=== PATIENT | male | born 1940 | race Caucasian/White ===

== ENCOUNTER 2017-02-13 15:23 | Inpatient (IN) | payer MEDICARE, OTHER ==
--- NOTE | ~2017-02-13 | HP ---
History And Physical [place] [id number] [place] [address] NAME: ZENY ORTEGA JR : 44 STATUS : ADM IN [facility]#: [id number] AGE: 76 ADM/REG DATE : 02/13/17 MR#: [id number] REPORT SERV DATE: 02/13/17 DICTATED BY: WERO MARTINEZ DATE: 02/13/17 REPORT STATUS : Draft TRANSCRIBED BY: DENTON DATE: 02/13/17 DATE OF ADMISSION: 02/13/2017 CHIEF COMPLAINT: Confusion and worsening weakness and poor p.o. intake. HISTORY OF PRESENT ILLNESS: Mr. Ortega is a 76-year-old male with known metastatic melanoma. The patient recently got started on Keytruda on February 02, given progression of his disease on p.o. medications. Per his , he started getting more confused a few days after the Keytruda treatments with worsening poor p.o. intake. Of note, he did have poor p.o. intake prior to the treatment but she notes this was worse. He has received 3 doses of Marinol for this although the confusion did precede the Marinol. He has not had a fall recently but he did have a bad fall about two months ago. He is currently living at home with his family after his rehab stay last fall. He has had worsening weakness. He did have a fever of 101 about three days ago and then again this morning and a little bit of a cough. Mr. Ortega denies any diarrhea, dysuria, complaints of shortness of breath or chest pain. Mr. Ortega currently is confused. He knows he is at the hospital but otherwise unable to answer questions. REVIEW OF SYSTEMS: Mr. Ortega denies any current complaints although he is confused. Again as mentioned above, Mr. Ortega denies any nausea, vomiting, diarrhea, dysuria, chest pain, or shortness of breath. He has had a dry cough. PAST MEDICAL HISTORY: 1. The patient has metastatic melanoma with known metastasis to bone and liver. He has history of diabetes, history of upper GI bleed in July 2016 with acute blood loss anemia and hemorrhagic shock. 2. History of severe malnutrition, chronic pain, and hyperlipidemia. 3. He also has a history of prostate cancer and kidney stones. 4. He had a pathologic fracture of L2 status post surgery by Dr. Hunt in May 2016. ALLERGIES: NO KNOWN DRUG ALLERGIES. HOME MEDICATIONS: List is pending at this time. does confirm that he is taking Marinol, he has taken about 3 doses of this. He also got his Keytruda dose on February 02. Per the ER note from [facility], he is on metformin as well as MSIR for pain and Protonix. SOCIAL HISTORY: Lives at home with his . Denies any illicits or drugs. FAMILY HISTORY: Does have siblings with Parkinson's and diabetes. LABORATORY DATA: From the ER, CBC with white blood cell count 16.2, hemoglobin 11, and platelet count of 443. BMP notable for serum sodium 131, potassium 3.9, chloride 93, CO2 of 26, BUN 29, creatinine 1.1 with calcium of 10.4, and albumin of 1.9. IMAGING: It does not appear there was imaging done in the emergency room. History And Physical [address] [address] NAME: ZENY ORTEGA JR : 44 STATUS : ADM IN [facility]#: [id number] AGE: 76 ADM/REG DATE : 02/13/17 MR#: [id number] REPORT SERV DATE: 02/13/17 DICTATED BY: WERO MARTINEZ DATE: 02/13/17 REPORT STATUS : Draft TRANSCRIBED BY: DENTON DATE: 02/13/17 ASSESSMENT AND PLAN: This is a 76-year-old male with known metastatic melanoma in progression, recently started on Keytruda on February 02. Presenting with weakness, fever, confusion, leukocytosis, hypercalcemia, and recent abnormal TFTs. 1. Acute metabolic encephalopathy. Presumably, this may be multifactorial due to medications, poor p.o. intake, possibly related to Keytruda infusion and fever. Likely multifactorial. At this time, we will check an MRI because the last MRI was in July and the patient may be at risk for new intracranial metastasis. In the interim, we will avoid sedating medications and monitor his mental status closely. We will do infectious workup as well. 2. Fever with encephalopathy. This is concerning for possible underlying sepsis. He does have a leukocytosis with a neutrophil predominance. We will check urine cultures as well as chest x-ray and blood cultures. We will start him on empiric cefepime and monitor this. 3. Hypercalcemia. The patient's corrected calcium is 12.2, given an albumin of 1.1. We will treat him with a dose of pamidronate and IV fluids. This was discussed with Dr. Gay from Oncology. 4. Known metastatic melanoma. Oncology has been consulted. Dr. Gay has seen and agrees with the above plan we have discussed. 5. Weakness. Suspect this may be multifactorial given all of the above including a possible infection, hypercalcemia, recent chemo and progression of his underlying metastatic melanoma. We will have PT see him and follow along. He will be on fall precautions. 6. Recent TSH of 56. We will repeat TFTs. May need to consider starting him on levothyroxine. 7. Diabetes. We will hold any p.o. medications and monitor with Accu-Cheks and sliding scale insulin. 8. Mild acute renal failure, likely due to dehydration. We will give him IV fluids and follow. 9. GI bleed in July of last year. We will continue the patient's PPI. 10.Chronic pain. Continue outpatient medications as long as mental status tolerates. 11.DVT prophylaxis will be with Lovenox. 12.Code status. I have discussed this with the patient's as well as Dr. Gay. At this time, the patient's wishes to discuss with her son and daughter. We will recommend DNR although this conversation has yet to be had with the patient, so the patient will be a full code in the interim. PAM/DENTON Wero Martinez MD / [id number] CC: History And Physical [address] [place] [address] NAME: ZENY ORTEGA : 44 STATUS : ADM IN [facility]#: [id number] AGE: 76 ADM/REG DATE : 02/13/17 MR#: [id number] REPORT SERV DATE: 02/13/17 DICTATED BY: WERO MARTINEZ DATE: 02/13/17 REPORT STATUS : Draft TRANSCRIBED BY: MODL DATE: 02/13/17 Wero Martinez MD
--- NOTE | ~2017-02-13 | DS ---
Discharge Summary [facility] [address] [place]. [address] NAME: ZENY BANKS JR : 44 STATUS : DIS IN PAT#: [id number] AGE: 76 ADM/REG DATE : 02/13/17 MR#: [id number] REPORT SERV DATE: 02/23/17 DICTATED BY: RYAN DISLA II DATE: 02/22/17 REPORT STATUS : Draft TRANSCRIBED BY: MODL DATE: 02/22/17 ADMISSION DATE: 02/13/2017 DISCHARGE DATE: 02/22/2017 DISCHARGE DIAGNOSES: 1. Sepsis. 2. Bilateral pleural effusions, exudative likely malignant. 3. Atelectasis. 4. Dysphagia with severe protein-calorie malnutrition. 5. Metastatic melanoma with progression. 6. Metabolic encephalopathy and agitation. 7. Extended-spectrum beta-lactamase urinary tract infection. 8. Hypernatremia. 9. Hypokalemia. CONSULTS: Kaleb Delaney M.D., and Pete Tang M.D., with [facility]. BRIEF HISTORY OF PRESENT ILLNESS: The patient is a 76-year-old male with the above history who presented to [facility] due to confusion, weakness, and poor p.o. intake. For detailed history and physical examination, please see Dr. Martinez's note from 02/13/2017. HOSPITAL COURSE: On admission, the patient had a white count of 16.6 with urinalysis with 12 white blood cells and small leukocyte esterase. He was started on IV cefepime given that he was fairly tachycardic and met criteria for sepsis. The patient continued to have elevated white count despite treatment with broad-spectrum antibiotics. Urine culture initially grew ESBL E. coli. Subsequent urinalyses and urine cultures were negative. The patient's white count continued to trend up despite antibiotics though he has been afebrile. There is no clear evidence of infection and a CT scan of his chest was done which showed large right and moderate left loculated pleural effusions with prominent compressive atelectasis consolidation throughout the lower lobes bilaterally. Otherwise scattered bilateral pulmonary nodules compatible with pulmonary metastatic disease, new since 04/10/2016. Also findings compatible with bony metastatic disease with multiple lytic lesions scattered throughout the thoracic and visualized lumbar spine with what appears to be pathologic fracture involving T8 vertebral body with approximately 90% loss of height. Otherwise, scattered soft tissue nodules in the left upper abdominal fat likely metastatic implants. Diffuse heterogeneity of the visualized liver likely related to hepatic metastatic disease. The patient had a thoracentesis which was exudative. Currently path pending but likely malignant. Given the patient's poor physical status, dysphagia, malnutrition, he will not be a candidate for further chemotherapy and Dr. Tang has recommended Hospice. Currently, the family is planning to take him home and this will be arranged. DISCHARGE MEDICATION: Marinol 2.5 mg p.o. q.6 hours. JEG/DENTON Discharge Summary [facility] [address] [facility] [place]. [address] NAME: ZENY BANKS : 44 STATUS : DIS IN PAT#: [id number] AGE: 76 ADM/REG DATE : 02/13/17 MR#: [id number] REPORT SERV DATE: 02/23/17 DICTATED BY: RYAN DISLA II DATE: 02/22/17 REPORT STATUS : Draft TRANSCRIBED BY: DENTON DATE: 02/22/17 Ryan Disla II, MD / [id number] CC: MD Meaghan Starks II, M.D.
[~2017-02-13 15:23] MED LIST: APPLE CIDAR VINEGAR; ASAB; ASAB PO; CO Q-10200 MG PO; DEX4 PO; FISH-EPA1000 MG PO; FLOMAX4 PO; GLUCOPHAGE1000 MG PO; GLUCPH PO; HALF81 PO; MEKINIST PO; METHOC500B PO; MIRALAXPKT PO; MSCONT15 PO; MSCONTIN PO; MUSCLE RELAXER PO; NEUR600 PO; NORCO1 TA1 PO; ONGLYZA5 MG PO; OXYCOD PO; PCET PO; PROTONIX PO; SENTAB PO; TAFIN75C PO; VITAMIN D1000 UNI1 PO; ZOCOR20 PO; ZOCOR40 PO; ZOFRAN ODT4 MG PO; [UNRECOGNIZED DRUG - OTHER] PO
[2017-02-13] MEDS ORDERED: FERROUS SULF325 M1 PO (18:00)
[2017-02-13] MEDS ORDERED: VITC500 PO (18:00)
[2017-02-13] MEDS ORDERED: PROTONIX PO (18:01)
[2017-02-13] MEDS ORDERED: GLUCPH PO (18:01)
[2017-02-13] MEDS ORDERED: MARI2.5 PO (18:03)
[2017-02-13] MEDS ORDERED: KEYTRUDA IV (18:03)
[2017-02-13] MEDS ORDERED: LIPITOR20 PO (18:03)
[2017-02-13 18:06] LABS: ASCORBIC ACID (UR NOT ORDER) 40 (NEG); BILIRUBIN, URINE NEGATIVE (NEG); KETONE, URINE 20 MG/DL (NEG); LEUKOCYTE ESTERASE(NOT OR SMALL (NEG); WBC (NOT ORDERED) (RFLEX) 12 (0-5)
[2017-02-13 18:37] LABS: FREE T4 0.48 NG/DL (0.76-1.46); PHOSPHORUS, SERUM 2.3 MG/DL (2.5-4.5)
[2017-02-13 18:39] LABS: ULTRASENSITIVE TSH 20.6 MCIU/ML (0.358-3.740)
[2017-02-13 19:24] LABS: PROCALCITONIN 1.46 ng/mL (<0.5)
[2017-02-13 19:34] LABS: CREATININE 0.86 MG/DL (0.70-1.30)
[2017-02-14 07:23] LABS: BASOPHILS 0.1 %; BASOPHILS ABSOLUTE 0.02 10/3/uL (0.0-0.16); EOSINOPHILS 0 %; IMMATURE GRANULOCYTES 0.4 %; IMMATURE GRANULOCYTES ABSOLUTE 0.07 10/3/uL (0.0-0.11); LYMPHOCYTES 7.9 %; LYMPHOCYTES ABSOLUTE 1.31 10/3/uL (0.67-4.30); MEAN CORPUS HGB CONC 33.3 g/dL (32.0-36.0); MEAN CORPUSCULAR HEMOGLOB 28.9 pg (26.0-34.0); MEAN CORPUSCULAR VOLUME 86.6 fL (80-100); MONOCYTES ABSOLUTE 0.33 10/3/uL (0.21-1.20); NEUTROPHILS 89.6 %; NEUTROPHILS ABSOLUTE 14.87 10/3/uL (2.02-8.40); PLATELET COUNT 371 10/3/uL (150-400); RBC DISTRIBUTION WIDTH 15.3 % (12.0-16.0)
[2017-02-14 07:24] LABS: HEMATOCRIT 29.7 % (40.0-51.0); HEMOGLOBIN 9.9 g/dL (13.6-17.8); MANUAL DIFF NO %; RED CELL COUNT 3.43 10/6/uL (4.7-6.1); WHITE BLOOD CELLS 16.6 10/3/uL (4.5-10.5)
[2017-02-14 07:43] LABS: ALBUMIN 1.6 G/DL (3.5-5.0); CHLORIDE, SERUM 101 MMOL/L (96-112); CREATININE 0.73 MG/DL (0.70-1.30); GFR AFRICAN AMERICAN 106 ML/MIN (>=60); GFR NON AFRICAN AMERICAN 91 ML/MIN (>=60); POTASSIUM, SERUM 3.3 MMOL/L (3.5-5.3); SGOT(AST) 7 U/L (5-40); TOTAL BILIRUBIN 0.7 MG/DL (0-1.2); TOTAL PROTEIN 5.6 G/DL (6.0-8.5)
[2017-02-14 07:44] LABS: A/G RATIO 0.4 (0.7-1.9); ALKALINE PHOSPHATASE 68 U/L (45-117); BUN (BLOOD UREA NITROGEN) 23 MG/DL (6-23); CALCIUM, SERUM 9.7 MG/DL (8.5-10.4); CO2 (CARBON DIOXIDE) 23 MMOL/L (24-34); GLUCOSE, SERUM 385 MG/DL (60-99); SGPT(ALT) < 6 U/L (5-65); SODIUM, SERUM 135 MMOL/L (135-148)
[2017-02-15 06:57] LABS: BASOPHILS 0.1 %; BASOPHILS ABSOLUTE 0.01 10/3/uL (0.0-0.16); EOSINOPHILS 0.1 %; EOSINOPHILS ABSOLUTE 0.01 10/3/uL (0.0-0.53); HEMATOCRIT 28.3 % (40.0-51.0); HEMOGLOBIN 9.7 g/dL (13.6-17.8); IMMATURE GRANULOCYTES 0.5 %; LYMPHOCYTES 2.9 %; LYMPHOCYTES ABSOLUTE 0.54 10/3/uL (0.67-4.30); MEAN CORPUS HGB CONC 34.3 g/dL (32.0-36.0); MEAN CORPUSCULAR HEMOGLOB 29.2 pg (26.0-34.0); MEAN CORPUSCULAR VOLUME 85.2 fL (80-100); MONOCYTES 7.7 %; MONOCYTES ABSOLUTE 1.44 10/3/uL (0.21-1.20); NEUTROPHILS 88.7 %; NEUTROPHILS ABSOLUTE 16.68 10/3/uL (2.02-8.40); PLATELET COUNT 432 10/3/uL (150-400); RBC DISTRIBUTION WIDTH 15.1 % (12.0-16.0); RED CELL COUNT 3.32 10/6/uL (4.7-6.1); WHITE BLOOD CELLS 18.8 10/3/uL (4.5-10.5)
[2017-02-15 06:58] LABS: MANUAL DIFF NO %
[2017-02-15 07:08] LABS: BUN (BLOOD UREA NITROGEN) 17 MG/DL (6-23); CALCIUM, SERUM 9.7 MG/DL (8.5-10.4); CHLORIDE, SERUM 106 MMOL/L (96-112); CO2 (CARBON DIOXIDE) 26 MMOL/L (24-34); CREATININE 0.64 MG/DL (0.70-1.30); GFR AFRICAN AMERICAN 112 ML/MIN (>=60); GFR NON AFRICAN AMERICAN 96 ML/MIN (>=60); GLUCOSE, SERUM 174 MG/DL (60-99); POTASSIUM, SERUM 3.4 MMOL/L (3.5-5.3); SODIUM, SERUM 142 MMOL/L (135-148)
[2017-02-16 05:13] LABS: BUN (BLOOD UREA NITROGEN) 19 MG/DL (6-23); CALCIUM, SERUM 9.3 MG/DL (8.5-10.4); CHLORIDE, SERUM 107 MMOL/L (96-112); CO2 (CARBON DIOXIDE) 27 MMOL/L (24-34); GFR AFRICAN AMERICAN 102 ML/MIN (>=60); GFR NON AFRICAN AMERICAN 88 ML/MIN (>=60); GLUCOSE, SERUM 186 MG/DL (60-99); POTASSIUM, SERUM 3.1 MMOL/L (3.5-5.3); SODIUM, SERUM 145 MMOL/L (135-148)
[2017-02-16 05:19] LABS: BASOPHILS 0.1 %; BASOPHILS ABSOLUTE 0.01 10/3/uL (0.0-0.16); EOSINOPHILS 0.1 %; EOSINOPHILS ABSOLUTE 0.01 10/3/uL (0.0-0.53); HEMATOCRIT 27.6 % (40.0-51.0); HEMOGLOBIN 9.4 g/dL (13.6-17.8); IMMATURE GRANULOCYTES 0.4 %; IMMATURE GRANULOCYTES ABSOLUTE 0.07 10/3/uL (0.0-0.11); LYMPHOCYTES 4.4 %; LYMPHOCYTES ABSOLUTE 0.84 10/3/uL (0.67-4.30); MEAN CORPUS HGB CONC 34.1 g/dL (32.0-36.0); MEAN CORPUSCULAR HEMOGLOB 28.9 pg (26.0-34.0); MEAN CORPUSCULAR VOLUME 84.9 fL (80-100); MEAN PLATELET VOLUME 10.4 fL (9.2-13.0); MONOCYTES 8.2 %; MONOCYTES ABSOLUTE 1.55 10/3/uL (0.21-1.20); NEUTROPHILS 86.8 %; NEUTROPHILS ABSOLUTE 16.41 10/3/uL (2.02-8.40); PLATELET COUNT 434 10/3/uL (150-400); RBC DISTRIBUTION WIDTH 15.6 % (12.0-16.0); RED CELL COUNT 3.25 10/6/uL (4.7-6.1); WHITE BLOOD CELLS 18.9 10/3/uL (4.5-10.5)
[2017-02-16 05:21] LABS: MANUAL DIFF NO %
[2017-02-16 10:58] LABS: PROCALCITONIN 1.45 ng/mL (<0.5)
[2017-02-17 05:20] LABS: HEMATOCRIT 26.8 % (40.0-51.0); MEAN CORPUS HGB CONC 33.6 g/dL (32.0-36.0); MEAN CORPUSCULAR HEMOGLOB 28.9 pg (26.0-34.0); MEAN CORPUSCULAR VOLUME 86.2 fL (80-100); MEAN PLATELET VOLUME 10.8 fL (9.2-13.0); PLATELET COUNT 403 10/3/uL (150-400); RBC DISTRIBUTION WIDTH 15.7 % (12.0-16.0); RED CELL COUNT 3.11 10/6/uL (4.7-6.1); WHITE BLOOD CELLS 20.2 10/3/uL (4.5-10.5)
[2017-02-17 05:24] LABS: MANUAL DIFF YES %
[2017-02-17 05:31] LABS: BUN (BLOOD UREA NITROGEN) 20 MG/DL (6-23); CALCIUM, SERUM 8.5 MG/DL (8.5-10.4); CHLORIDE, SERUM 113 MMOL/L (96-112); CO2 (CARBON DIOXIDE) 25 MMOL/L (24-34); CREATININE 0.82 MG/DL (0.70-1.30); GFR AFRICAN AMERICAN 101 ML/MIN (>=60); GFR NON AFRICAN AMERICAN 87 ML/MIN (>=60); GLUCOSE, SERUM 216 MG/DL (60-99); POTASSIUM, SERUM 3.3 MMOL/L (3.5-5.3); SODIUM, SERUM 147 MMOL/L (135-148)
[2017-02-17 06:02] LABS: BAND NEUTROPHILS 8 %; LYMPHOCYTES 14 %; LYMPHOCYTES ABSOLUTE (CALC) 2.83 10/3/uL (0.67-4.30); MONOCYTES 2 %; NEUTROPHILS ABSOLUTE (CALC) 16.97 10/3/uL (2.02-8.40); SEGMENTED NEUTROPHIL (0) 76 %; TOTAL NUCLEATED CELLS 100
[2017-02-17 06:03] LABS: GIANT PLATELET OCC; PLATELET ESTIMATE SLT INC (ADEQUATE)
[2017-02-17 10:40] LABS: ASCORBIC ACID (UR NOT ORDER) 40 (NEG); BILIRUBIN, URINE NEGATIVE (NEG); KETONE, URINE NEGATIVE (NEG); LEUKOCYTE ESTERASE(NOT OR TRACE (NEG); WBC (NOT ORDERED) (RFLEX) 22 (0-5)
[2017-02-18 05:27] LABS: BUN (BLOOD UREA NITROGEN) 19 MG/DL (6-23); CHLORIDE, SERUM 114 MMOL/L (96-112); CO2 (CARBON DIOXIDE) 25 MMOL/L (24-34); CREATININE 0.87 MG/DL (0.70-1.30); GFR AFRICAN AMERICAN 99 ML/MIN (>=60); GFR NON AFRICAN AMERICAN 85 ML/MIN (>=60); GLUCOSE, SERUM 223 MG/DL (60-99); POTASSIUM, SERUM 3.2 MMOL/L (3.5-5.3); SODIUM, SERUM 150 MMOL/L (135-148)
[2017-02-18 05:30] LABS: BASOPHILS 0.1 %; BASOPHILS ABSOLUTE 0.02 10/3/uL (0.0-0.16); EOSINOPHILS 0.1 %; EOSINOPHILS ABSOLUTE 0.02 10/3/uL (0.0-0.53); IMMATURE GRANULOCYTES 0.5 %; IMMATURE GRANULOCYTES ABSOLUTE 0.09 10/3/uL (0.0-0.11); LYMPHOCYTES 4.1 %; LYMPHOCYTES ABSOLUTE 0.76 10/3/uL (0.67-4.30); MEAN CORPUS HGB CONC 33.3 g/dL (32.0-36.0); MEAN CORPUSCULAR HEMOGLOB 28.7 pg (26.0-34.0); MEAN PLATELET VOLUME 11.2 fL (9.2-13.0); MONOCYTES 7.4 %; MONOCYTES ABSOLUTE 1.39 10/3/uL (0.21-1.20); NEUTROPHILS 87.8 %; NEUTROPHILS ABSOLUTE 16.47 10/3/uL (2.02-8.40); PLATELET COUNT 352 10/3/uL (150-400); RED CELL COUNT 3.14 10/6/uL (4.7-6.1); WHITE BLOOD CELLS 18.8 10/3/uL (4.5-10.5)
[2017-02-18 05:32] LABS: MANUAL DIFF NO %
[2017-02-19 07:28] LABS: HEMATOCRIT 28.7 % (40.0-51.0); HEMOGLOBIN 9.6 g/dL (13.6-17.8); MEAN CORPUS HGB CONC 33.4 g/dL (32.0-36.0); MEAN CORPUSCULAR HEMOGLOB 28.2 pg (26.0-34.0); MEAN CORPUSCULAR VOLUME 84.4 fL (80-100); MEAN PLATELET VOLUME 11.5 fL (9.2-13.0); PLATELET COUNT 353 10/3/uL (150-400); RBC DISTRIBUTION WIDTH 16.1 % (12.0-16.0); WHITE BLOOD CELLS 24.1 10/3/uL (4.5-10.5)
[2017-02-19 07:29] LABS: CALCIUM, SERUM 7.8 MG/DL (8.5-10.4); CHLORIDE, SERUM 117 MMOL/L (96-112); CO2 (CARBON DIOXIDE) 28 MMOL/L (24-34); CREATININE 0.86 MG/DL (0.70-1.30); GFR AFRICAN AMERICAN 99 ML/MIN (>=60); GFR NON AFRICAN AMERICAN 85 ML/MIN (>=60); POTASSIUM, SERUM 3.4 MMOL/L (3.5-5.3); SODIUM, SERUM 154 MMOL/L (135-148)
[2017-02-19 07:30] LABS: BUN (BLOOD UREA NITROGEN) 23 MG/DL (6-23); GLUCOSE, SERUM 132 MG/DL (60-99)
[2017-02-19 07:31] LABS: MANUAL DIFF YES %
[2017-02-19 07:40] LABS: BAND NEUTROPHILS 15 %; LYMPHOCYTES 7 %; LYMPHOCYTES ABSOLUTE (CALC) 1.69 10/3/uL (0.67-4.30); MONOCYTES 4 %; MONOCYTES ABSOLUTE (CALC) 0.96 10/3/uL (0.21-1.20); NEUTROPHILS ABSOLUTE (CALC) 21.45 10/3/uL (2.02-8.40); PLATELET ESTIMATE ADQ (ADEQUATE); POLYCHROMASIA 1+ (2-5/OIF) (0-1/OIF); SEGMENTED NEUTROPHIL (0) 74 %; TOTAL NUCLEATED CELLS 100
[2017-02-19 07:41] LABS: HYPOCHROMIA 1+ (3-10/OIF) (0-2/OIF); TARGET CELLS FEW (3-10/OIF) (0-1/OIF)
[2017-02-19 09:33] LABS: INTERNATIONAL NORMAL RATI 1.3 UNITS (-); PROTIME (NOT ORD) 15.9 SEC (12.0-14.5)
[2017-02-19 16:51] LABS: BF ALBUMIN 1.2 G/DL; LDH BODY FLUID (NOT ORD) 107 U/L
[2017-02-19 17:55] LABS: BD FL LYMPH (NOT ORD) 6 %; BD FL SOURCE (NOT ORD) THORACENTESIS; BF BASO (NOT OF) 0 %; BF LARGE MONONUCLEAR 78 %; BF TOTAL CELL CT (NOT ORD 565 /MM3; BODY FLUID EOS (NOT ORD) 0 %; BODY FLUID RBC (NOT ORD) 25574 /MM3; BODY FLUID SEG (NOT ORD) 16 %
[2017-02-20 06:33] LABS: CALCIUM, SERUM 7.5 MG/DL (8.5-10.4); CHLORIDE, SERUM 121 MMOL/L (96-112); CREATININE 0.86 MG/DL (0.70-1.30); GFR AFRICAN AMERICAN 99 ML/MIN (>=60); GFR NON AFRICAN AMERICAN 85 ML/MIN (>=60); SODIUM, SERUM 152 MMOL/L (135-148)
[2017-02-20 06:35] LABS: BUN (BLOOD UREA NITROGEN) 30 MG/DL (6-23); CO2 (CARBON DIOXIDE) 21 MMOL/L (24-34); GLUCOSE, SERUM 196 MG/DL (60-99); POTASSIUM, SERUM 4.6 MMOL/L (3.5-5.3)
[2017-02-20 07:29] LABS: HEMATOCRIT 30.4 % (40.0-51.0); HEMOGLOBIN 9.9 g/dL (13.6-17.8); MEAN CORPUS HGB CONC 32.6 g/dL (32.0-36.0); MEAN CORPUSCULAR VOLUME 85.9 fL (80-100); PLATELET COUNT 278 10/3/uL (150-400); RED CELL COUNT 3.54 10/6/uL (4.7-6.1)
[2017-02-20 07:34] LABS: MANUAL DIFF YES %; WHITE BLOOD CELLS 25.6 10/3/uL (4.5-10.5)
[2017-02-20 08:03] LABS: BAND NEUTROPHILS 2 %; LYMPHOCYTES 4 %; LYMPHOCYTES ABSOLUTE (CALC) 0.51 10/3/uL (0.67-4.30); MONOCYTES 8 %; MONOCYTES ABSOLUTE (CALC) 2.05 10/3/uL (0.21-1.20); NEUTROPHILS ABSOLUTE (CALC) 23.04 10/3/uL (2.02-8.40); SEGMENTED NEUTROPHIL (0) 86 %; TARGET CELLS FEW (3-10/OIF) (0-1/OIF); TOTAL NUCLEATED CELLS 100
[2017-02-20 08:04] LABS: PLATELET ESTIMATE ADQ (ADEQUATE)
[2017-02-20 12:26] LABS: PROCALCITONIN 1.74 ng/mL (<0.5)
[2017-02-20 12:39] LABS: ASCORBIC ACID (UR NOT ORDER) 40 (NEG); BILIRUBIN, URINE NEGATIVE (NEG); KETONE, URINE NEGATIVE (NEG); LEUKOCYTE ESTERASE(NOT OR TRACE (NEG); WBC (NOT ORDERED) (RFLEX) 7 (0-5)
[2017-02-21 06:36] LABS: HEMATOCRIT 29.2 % (40.0-51.0); HEMOGLOBIN 9.6 g/dL (13.6-17.8); MEAN CORPUS HGB CONC 32.9 g/dL (32.0-36.0); MEAN CORPUSCULAR HEMOGLOB 27.8 pg (26.0-34.0); MEAN CORPUSCULAR VOLUME 84.6 fL (80-100); MEAN PLATELET VOLUME 11.5 fL (9.2-13.0); PLATELET COUNT 197 10/3/uL (150-400); RBC DISTRIBUTION WIDTH 16.5 % (12.0-16.0); RED CELL COUNT 3.45 10/6/uL (4.7-6.1); WHITE BLOOD CELLS 23.7 10/3/uL (4.5-10.5)
[2017-02-21 06:38] LABS: MANUAL DIFF YES %
[2017-02-21 07:19] LABS: LYMPHOCYTES 7 %; LYMPHOCYTES ABSOLUTE (CALC) 1.66 10/3/uL (0.67-4.30); MONOCYTES 2 %; MONOCYTES ABSOLUTE (CALC) 0.47 10/3/uL (0.21-1.20); NEUTROPHILS ABSOLUTE (CALC) 21.57 10/3/uL (2.02-8.40); PLATELET ESTIMATE ADQ (ADEQUATE); RBC MORPHOLOGY NORM (NORMAL); SEGMENTED NEUTROPHIL (0) 91 %; TOTAL NUCLEATED CELLS 100
[2017-02-21 08:13] LABS: BUN (BLOOD UREA NITROGEN) 29 MG/DL (6-23); CALCIUM, SERUM 7.5 MG/DL (8.5-10.4); CHLORIDE, SERUM 123 MMOL/L (96-112); CO2 (CARBON DIOXIDE) 25 MMOL/L (24-34); CREATININE 1.03 MG/DL (0.70-1.30); GFR AFRICAN AMERICAN 83 ML/MIN (>=60); GFR NON AFRICAN AMERICAN 71 ML/MIN (>=60); GLUCOSE, SERUM 211 MG/DL (60-99)
[2017-02-21 08:39] LABS: POTASSIUM, SERUM 2.8 MMOL/L (3.5-5.3); SODIUM, SERUM 155 MMOL/L (135-148)
[2017-02-22 07:16] LABS: CHLORIDE, SERUM 123 MMOL/L (96-112); CREATININE 1.07 MG/DL (0.70-1.30); GFR AFRICAN AMERICAN 79 ML/MIN (>=60); GFR NON AFRICAN AMERICAN 68 ML/MIN (>=60); SODIUM, SERUM 154 MMOL/L (135-148)
[2017-02-22 07:17] LABS: BUN (BLOOD UREA NITROGEN) 39 MG/DL (6-23); CO2 (CARBON DIOXIDE) 17 MMOL/L (24-34); GLUCOSE, SERUM 266 MG/DL (60-99); POTASSIUM, SERUM 4.4 MMOL/L (3.5-5.3)
[2017-02-22 07:20] LABS: HEMATOCRIT 31.3 % (40.0-51.0); HEMOGLOBIN 9.8 g/dL (13.6-17.8); MEAN CORPUS HGB CONC 31.3 g/dL (32.0-36.0); MEAN CORPUSCULAR HEMOGLOB 27.5 pg (26.0-34.0); MEAN PLATELET VOLUME 13.3 fL (9.2-13.0); RBC DISTRIBUTION WIDTH 16.7 % (12.0-16.0); RED CELL COUNT 3.57 10/6/uL (4.7-6.1)
[2017-02-22 07:22] LABS: MEAN CORPUSCULAR VOLUME 87.7 fL (80-100); PLATELET COUNT 124 10/3/uL (150-400); WHITE BLOOD CELLS 31.9 10/3/uL (4.5-10.5)
[2017-02-22 07:23] LABS: MANUAL DIFF YES %
[2017-02-22 07:34] LABS: SEGMENTED NEUTROPHIL (0) 86 %; TOTAL NUCLEATED CELLS 100
[2017-02-22 07:35] LABS: BAND NEUTROPHILS 13 %; GIANT PLATELET OCC; LYMPHOCYTES 1 %; LYMPHOCYTES ABSOLUTE (CALC) 0.32 10/3/uL (0.67-4.30); NEUTROPHILS ABSOLUTE (CALC) 31.58 10/3/uL (2.02-8.40); PLATELET ESTIMATE SLT DEC (ADEQUATE)
[2017-02-22 07:36] LABS: TOXIC GRANULATION 1+; VACUOLATED NEUTROPHILES OCC
[2017-02-22 07:37] LABS: OVALOCYTES 1+ (3-10/OIF) (0-2/OIF); POIKILOCYTOSIS 1+ (5-10/OIF) (0-5/OIF); POLYCHROMASIA 1+ (2-5/OIF) (0-1/OIF)
[2017-02-22] MEDS ORDERED: ATV1 PO (13:30)
== END 2017-02-22 16:30 | disposition hospice, home (50) | DRG 871 ==
LOC: 4EA 15:23
PROVIDERS: Internal Medicine
PROC: 0W9B3ZZ Drainage of Left Pleural Cavity, Percutaneous Approach (ICD-10-PCS; principal; 2017-02-19)
DX: A41.9 Sepsis, unspecified organism (principal); G93.41 Metabolic encephalopathy; E43 Unspecified severe protein-calorie malnutrition; J91.0 Malignant pleural effusion; E87.0 Hyperosmolality and hypernatremia; C49.9 Malignant neoplasm of connective and soft tissue, unspecified; E11.65 Type 2 diabetes mellitus with hyperglycemia; E83.52 Hypercalcemia; J98.11 Atelectasis; N39.0 Urinary tract infection, site not specified; Z68.1 Body mass index [BMI] 19.9 or less, adult; Z66 Do not resuscitate; E87.6 Hypokalemia; E03.9 Hypothyroidism, unspecified
CPT/HCPCS: 32555; 70551; 71010; 71250; 80048; 80053; 80202; 81001; 82042; 82272; 82330; 82565; 82962; 83036; 83605; 83615; 83735; 84100; 84145; 84157; 84439; 84443; 85025; 85049; 85610; 85730; 87040; 87070; 87077; 87086; 87186; 87205; 88112; 88305; 88341; 88342; 89051; 92610-GN; 97161-GP; A9270-GY; G8978-CM-GP; G8979-CM-GP; G8980-CM-GP; G8996-CN-GN; G8997-CN-GN; G8998-CN-GN; J0692; J2430; J2543; J3370; J3486